=== PATIENT | male | born 1975 | race Caucasian/White ===

== ENCOUNTER → 2023-09-04 | Day surgery (SDC) | payer BC ==
[~2023-09-04] MED LIST: FAMOTIDINE20 MG PO; LACTATED RINGER'S 1,000 ML ONE; LIDOCAINE HCL 2% LOCAL INJ 5 ML SDV VIAL INJ ONE; MIDAZOLAM HCL 2 MG/2 ML VIAL ONE; PROPOFOL IV EMULSION 10 MG/ML 20 ML VIAL ONE
[2023-09-04 15:00] VITALS: BP 132/94; PULSE 72; RESP 17; O2SAT 98
[2023-09-04] MEDS: HYOSCYAMINE SULFATE 0.5 MG/ML INJ IV PRN (15:05)
== END | disposition home or self-care (01) ==
LOC: OR 12:33
PROVIDERS: ATTEND Internal Medicine Gastroenterology
DX: Z12.11 Encounter for screening for malignant neoplasm of colon (principal); D12.3 Benign neoplasm of transverse colon; R19.7 Diarrhea, unspecified; K21.9 Gastro-esophageal reflux disease without esophagitis; K62.5 Hemorrhage of anus and rectum; R10.84 Generalized abdominal pain; R14.0 Abdominal distension (gaseous); K64.8 Other hemorrhoids; Z68.35 Body mass index [BMI] 35.0-35.9, adult
CPT/HCPCS: 45378; 93005; J2001; J2250